=== PATIENT | female | born 1955 | race Caucasian/White ===

== ENCOUNTER 2019-07-14 09:38 | Emergency (ER) | payer MEDICAID ==
[~2019-07-14] VITALS: Ht 165.1 cm; Wt 68.0 kg
[2019-07-14] MEDS ORDERED: SODIUM CHLORIDE 0.9% 1,000 ML IV ONE (10:23)
[2019-07-14] MEDS ORDERED: IBUPROFEN 600MG TABLET PO ONE (10:30)
[2019-07-14 11:46] LABS: BASOPHILS % 0.6 % (0.0-2.0); EOSINOPHILS % 0.9 % (0.0-5.0); HEMATOCRIT. 40.5 % (36.0-48.0); HEMOGLOBIN. 14.1 g/dL (12.0-16.0); LYMPHOCYTES % 23.8 % (20.0-50.0); MEAN CORPUSCULAR HEMOGLOBIN 32.4 pg (28.0-32.0); MEAN CORPUSCULAR VOLUME 92.9 fL (81.0-99.0); MEAN PLATELET VOLUME 7.8 fl (7.4-10.4); MONOCYTES % 8.8 % (2.0-8.0); NEUTROPHILS % 65.9 % (40.0-76.0); PLATELET 266 x1000/uL (130-400); RED BLOOD CELL COUNT 4.36 mill/uL (4.2-5.4); RED CELL DISTRIBUTION WIDTH 13.3 % (11.6-14.6)
[2019-07-14 11:50] LABS: CHLORIDE 104 mEq/L (98-107)
[2019-07-14 11:57] LABS: BETA HYDROXYBUTYRATE 0.1 mMol/L (0.0-0.3)
[2019-07-14 14:45] VITALS: BP 132/57
== END 2019-07-14 15:03 | disposition home or self-care (01) ==
LOC: ER 10:01
DX: M79.672 Pain in left foot (principal); R42 Dizziness and giddiness; R53.1 Weakness; M79.18 Myalgia, other site; E11.9 Type 2 diabetes mellitus without complications; I10 Essential (primary) hypertension
CPT/HCPCS: 36415; 73630; 80053; 82010; 85025; 93005; 96360; 99283; J7030

== ENCOUNTER 2020-03-30 15:58 | Inpatient (IN) | payer MEDICAID ==
[~2020-03-30] VITALS: Ht 162.6 cm; Wt 77.1 kg
[2020-03-30] MEDS ORDERED: ALBUTEROL (0.083%) 2.5MG/3ML NEB HHN STA (16:19)
[2020-03-30] MEDS ORDERED: METHYLPREDNISOLONE SOD SUCC 125 MG/2 ML VIAL IV STA (16:19)
[2020-03-30] MEDS ORDERED: IPRATROPIUM BROMIDE (0.02%) 0.5MG/2.5ML NEB HHN STA (16:19)
[2020-03-30 17:41] LABS: BASOPHILS % 0.7 % (0.0-2.0); EOSINOPHILS % 2.4 % (0.0-5.0); HEMATOCRIT. 41.3 % (36.0-48.0); LYMPHOCYTES % 22.5 % (20.0-50.0); MEAN CORPUSCULAR HEMOGLOBIN 32.9 pg (28.0-32.0); MEAN CORPUSCULAR VOLUME 96.9 fL (81.0-99.0); MEAN PLATELET VOLUME 7.7 fl (7.4-10.4); MONOCYTES % 5.8 % (2.0-8.0); NEUTROPHILS % 68.6 % (40.0-76.0); PLATELET 245 x1000/uL (130-400); RED BLOOD CELL COUNT 4.26 mill/uL (4.2-5.4); RED CELL DISTRIBUTION WIDTH 14.5 % (11.6-14.6)
[2020-03-30] MEDS ORDERED: ACETAMINOPHEN 325MG TABLET PO ONE (17:45)
[2020-03-30 17:47] LABS: CHLORIDE 104 mEq/L (98-107)
[2020-03-30] MEDS ORDERED: IBUPROFEN 600MG TABLET PO ONE (18:45)
[2020-03-30 20:15] VITALS: BP 108/66
[2020-03-30] MEDS ORDERED: CLONIDINE 0.1MG TABLET PO PRN (21:45)
[2020-03-30] MEDS ORDERED: GUAIFENESIN 200MG/10ML SUGAR FREE UDC PO PRN (21:45)
[2020-03-30] MEDS ORDERED: IPRATROPIUM/ALBUTEROL 0.5-3(2.5)MG/3ML NEB NEB PRN (21:45)
[2020-03-30] MEDS ORDERED: ONDANSETRON HCL 4MG/2ML INJ IV PRN (21:45)
[2020-03-30] MEDS ORDERED: ACETAMINOPHEN 325MG TABLET PO PRN (21:45)
[2020-03-30] MEDS ORDERED: MAGNESIUM/ALUMINUM HYDROXIDE/SIMETHICONE 30ML UDC PO PRN (21:45)
[2020-03-30] MEDS ORDERED: DEXTROSE 50% WATER 50ML SYRINGE IV PRN (22:30)
[2020-03-30] MEDS: PANTOPRAZOLE 40MG DR TABLET PO SCH (22:35)
[2020-03-30] MEDS: ENOXAPARIN 40MG/0.4ML SYR SUBCUT SCH (22:35)
[2020-03-30] MEDS: METHYLPREDNISOLONE SOD SUCC 40 MG/ML VIAL IV SCH (22:35)
[2020-03-30 23:53] LABS: CHLORIDE 100 mEq/L (98-107)
[2020-03-31] VITALS: BP 151/53
[2020-03-31 00:01] LABS: CREATINE KINASE 53 IU/L (26-192)
[2020-03-31] MEDS ORDERED: METF-816 PO (00:53)
[2020-03-31] MEDS ORDERED: GLIP10TA10 PO (00:53)
[2020-03-31 04:00] VITALS: BP 147/63
[2020-03-31 06:11] LABS: CLARITY URINE CLEAR (CLEAR); COLOR URINE YELLOW (YELLOW); KETONES URINE NEGATIVE (NEGATIVE); LEUKOCYTE ESTERASE URINE NEGATIVE (NEGATIVE); NITRITE URINE NEGATIVE (NEGATIVE); OCCULT BLOOD URINE NEGATIVE (NEGATIVE); PH URINE 5.5 (4.5-8.0); PROTEIN URINE NEGATIVE (NEGATIVE); SPECIFIC GRAVITY URINE 1.021 (1.005-1.030); UROBILINOGEN URINE 0.2 E.U./dL (0.2-1.0)
[2020-03-31] MEDS: BLOOD SUGAR DIAGNOSTIC STRIP TEST SCH ×4 (06:11→21:18)
[2020-03-31] MEDS: METHYLPREDNISOLONE SOD SUCC 40 MG/ML VIAL IV SCH ×3 (06:11→21:26)
[2020-03-31 06:12] LABS: HEMATOCRIT. 40.9 % (36.0-48.0); HEMOGLOBIN. 13.6 g/dL (12.0-16.0); MEAN CORPUSCULAR HEMOGLOBIN 32.1 pg (28.0-32.0); MEAN CORPUSCULAR VOLUME 96.6 fL (81.0-99.0); MEAN PLATELET VOLUME 8.3 fl (7.4-10.4); PLATELET 238 x1000/uL (130-400); RED BLOOD CELL COUNT 4.23 mill/uL (4.2-5.4); RED CELL DISTRIBUTION WIDTH 14.2 % (11.6-14.6)
[2020-03-31 06:29] LABS: LDL CHOLESTEROL 128 mg/dL (5-100)
[2020-03-31 06:30] LABS: CREATINE KINASE 44 IU/L (26-192)
[2020-03-31 06:31] LABS: HDL CHOLESTEROL 70 mg/dL (40-59)
[2020-03-31 06:33] LABS: *AMPHETAMINES SCREEN URINE PRESUMTIVE POSITIVE (NEGATIVE)
[2020-03-31 06:33] LABS: CREATINE KINASE MB FRACTION 1.7 ng/mL (0.5-3.6)
[2020-03-31 06:34] LABS: *BARBITURATES SCREEN URINE NEGATIVE (NEGATIVE); *BENZODIAZEPINES SCREEN URINE PRESUMTIVE POSITIVE (NEGATIVE); *COCAINE SCREEN URINE NEGATIVE (NEGATIVE)
[2020-03-31 06:35] LABS: CANNABINOID URINE SCREEN PRESUMTIVE POSITIVE (NEGATIVE); METHADONE URINE SCREEN NEGATIVE (NEGATIVE); OPIATES URINE SCREEN NEGATIVE (NEGATIVE); PHENCYCLIDINE URINE SCREEN NEGATIVE (NEGATIVE)
[2020-03-31] MEDS: PANTOPRAZOLE 40MG DR TABLET PO SCH (06:38)
[2020-03-31 08:00] VITALS: BP 192/92
[2020-03-31] MEDS: INSULIN LISPRO 100 UNITS/ML SUBCUT SCH ×4 (09:51→21:29)
[2020-03-31 10:19] LABS: PLATELET ESTIMATE NORMAL
[2020-03-31 12:10] VITALS: BP 159/79
[2020-03-31] MEDS: NICOTINE 14MG PATCH TD SCH (15:52)
[2020-03-31] MEDS: HYDROCODONE/ACETAMINOPHEN 5/325MG TABLET PO PRN ×2 (15:52→20:06)
[2020-03-31] MEDS: AMLODIPINE 5MG TABLET PO SCH (15:52)
[2020-03-31 16:07] VITALS: BP 159/79
[2020-03-31 19:49] LABS: VITAMIN B12 SERUM 249 pg/mL (211-911)
[2020-03-31 20:00] VITALS: BP 132/56
[2020-03-31] MEDS: DOCUSATE SODIUM 100MG CAPSULE PO PRN (21:25)
[2020-03-31] MEDS: ATORVASTATIN CALCIUM 20MG TABLET PO SCH (21:25)
[2020-03-31] MEDS: ENOXAPARIN 40MG/0.4ML SYR SUBCUT SCH (21:26)
[2020-04-01] VITALS: BP 142/59
[2020-04-01] MEDS: IPRATROPIUM/ALBUTEROL 0.5-3(2.5)MG/3ML NEB NEB SCH ×6 (01:00→21:45)
[2020-04-01] MEDS: HYDROCODONE/ACETAMINOPHEN 5/325MG TABLET PO PRN ×6 (01:10→23:56)
[2020-04-01 04:00] VITALS: BP 138/60
[2020-04-01] MEDS: METHYLPREDNISOLONE SOD SUCC 40 MG/ML VIAL IV SCH ×3 (06:17→21:33)
[2020-04-01] MEDS: BLOOD SUGAR DIAGNOSTIC STRIP TEST SCH ×4 (06:33→20:07)
[2020-04-01 06:48] LABS: HEMOGLOBIN. 13.3 g/dL (12.0-16.0); MEAN CORPUSCULAR HEMOGLOBIN 32.7 pg (28.0-32.0); MEAN CORPUSCULAR VOLUME 95.9 fL (81.0-99.0); MEAN PLATELET VOLUME 8.7 fl (7.4-10.4); PLATELET 235 x1000/uL (130-400); RED BLOOD CELL COUNT 4.06 mill/uL (4.2-5.4); RED CELL DISTRIBUTION WIDTH 14.3 % (11.6-14.6)
[2020-04-01 06:57] LABS: CHLORIDE 103 mEq/L (98-107)
[2020-04-01 08:00] VITALS: BP 150/73
[2020-04-01] MEDS: NICOTINE 14MG PATCH TD SCH (09:00)
[2020-04-01] MEDS: FAMOTIDINE 20MG TABLET PO SCH (09:01)
[2020-04-01] MEDS: AMLODIPINE 5MG TABLET PO SCH (09:01)
[2020-04-01] MEDS: INSULIN LISPRO 100 UNITS/ML SUBCUT SCH ×4 (09:02→20:23)
[2020-04-01] MEDS ORDERED: ATOR20TA PO (11:06)
[2020-04-01] MEDS ORDERED: FAMO20TA8 PO (11:06)
[2020-04-01] MEDS ORDERED: PRED10TA MT (11:06)
[2020-04-01] MEDS ORDERED: AMLO5TAB88 PO (11:06)
[2020-04-01 12:00] VITALS: BP 123/47
[2020-04-01 14:13] LABS: PLATELET ESTIMATE NORMAL
[2020-04-01 16:00] VITALS: BP 118/68
[2020-04-01] MEDS: ATORVASTATIN CALCIUM 20MG TABLET PO SCH (20:05)
[2020-04-01] MEDS: ENOXAPARIN 40MG/0.4ML SYR SUBCUT SCH (20:06)
[2020-04-01 20:29] VITALS: BP 123/53
[2020-04-02] VITALS: BP 133/55
[2020-04-02] MEDS: IPRATROPIUM/ALBUTEROL 0.5-3(2.5)MG/3ML NEB NEB SCH ×2 (01:03→13:05)
[2020-04-02 04:00] VITALS: BP 140/54
[2020-04-02] MEDS: HYDROCODONE/ACETAMINOPHEN 5/325MG TABLET PO PRN ×3 (04:02→12:46)
[2020-04-02] MEDS: METHYLPREDNISOLONE SOD SUCC 40 MG/ML VIAL IV SCH ×2 (05:27→13:31)
[2020-04-02] MEDS: BLOOD SUGAR DIAGNOSTIC STRIP TEST SCH ×2 (06:22→12:16)
[2020-04-02 08:00] VITALS: BP 153/74
[2020-04-02] MEDS: FAMOTIDINE 20MG TABLET PO SCH (08:44)
[2020-04-02] MEDS: AMLODIPINE 5MG TABLET PO SCH (08:44)
[2020-04-02] MEDS: NICOTINE 14MG PATCH TD SCH (08:45)
[2020-04-02] MEDS: INSULIN LISPRO 100 UNITS/ML SUBCUT SCH ×2 (08:47→12:51)
[2020-04-02 12:00] VITALS: BP 145/68
[2020-04-02] MEDS: DOCUSATE SODIUM 100MG CAPSULE PO PRN (13:32)
[2020-04-02 13:46] VITALS: BP 145/68
== END 2020-04-02 15:20 | disposition home or self-care (01) | DRG 812 ==
LOC: ER 15:58 → 6WST 19:03 → ENRESERV 19:34
PROVIDERS: ADMIT Internal Medicine; ATTEND Internal Medicine
DX: T43.621A Poisoning by amphetamines, accidental (unintentional), initial encounter (principal); J44.1 Chronic obstructive pulmonary disease with (acute) exacerbation; J96.00 Acute respiratory failure, unspecified whether with hypoxia or hypercapnia; J45.901 Unspecified asthma with (acute) exacerbation; I10 Essential (primary) hypertension; J68.0 Bronchitis and pneumonitis due to chemicals, gases, fumes and vapors; E78.5 Hyperlipidemia, unspecified; E11.40 Type 2 diabetes mellitus with diabetic neuropathy, unspecified; F15.10 Other stimulant abuse, uncomplicated; F12.10 Cannabis abuse, uncomplicated; D72.810 Lymphocytopenia; E11.65 Type 2 diabetes mellitus with hyperglycemia; F17.210 Nicotine dependence, cigarettes, uncomplicated; G95.9 Disease of spinal cord, unspecified; Z71.6 Tobacco abuse counseling; Y92.89 Other specified places as the place of occurrence of the external cause; Z59.0 Homelessness; Z79.84 Long term (current) use of oral hypoglycemic drugs
CPT/HCPCS: 36415; 71045; 80048; 80053; 80061; 80305; 81003; 82550; 82553; 82607; 82962; 83036; 83735; 83880; 84443; 84484; 85025; 93005; 93970; 94640; 99285; J1650; J1815; J2920; J2930

== ENCOUNTER 2021-07-08 14:54 | Emergency (ER) | payer MEDICAID ==
[~2021-07-08] VITALS: Ht 162.6 cm; Wt 69.0 kg
[~2021-07-08 14:54] MED LIST: AMLO5TAB88 PO; ATOR20TA PO; FAMO20TA8 PO; GLIP10TA10 PO; METF-874 PO; PRED10TA MT
[2021-07-08 15:02] VITALS: BP 142/70
== END 2021-07-08 17:50 | disposition home or self-care (01) ==
LOC: ER 14:59
DX: U07.1 COVID-19 (principal); J44.1 Chronic obstructive pulmonary disease with (acute) exacerbation; F15.90 Other stimulant use, unspecified, uncomplicated
CPT/HCPCS: 99283